=== PATIENT | male | born 1945 | race Caucasian/White ===

== ENCOUNTER 2023-12-02 10:36 | Outpatient (AMB) | payer MEDICARE, SELFPAY ==
--- NOTE | 2023-12-02 11:16 | A.OFFVIS_ITS ---
Vital Signs 12/02/23 11:17 Height 6 ft 3 in Weight 220 lb BMI 27.5 Intake Visit Reasons: New PT - Left Knee Pain Hx of TKA Intake Note: Sarath is a 78 year old male who presents today as a new patient with complaints of left knee pain. History of Left TKA03/09/15 at [facility]. Patient reports that he has a hard time walking, he complains of pain in the back, knees and feet Left> Right. He has previous surgery on bilateral feet to raise his arches and history of left TKA. He reports that the knee after TKA was dong well until he had his foot surgery. Allergies No Known Allergies Allergy (Verified 12/02/23 11:19) HPI HPI New PT - Left Knee Pain Hx of TKA: Details: Sarath is a 78 year old male who presents today as a new patient with complaints of left knee pain. History of Left TKA03/09/15 at [facility]. Patient reports that he has a hard time walking, he complains of pain in the back, knees and feet Left> Right. He has previous surgery on bilateral feet to raise his arches and history of left TKA. He reports that the knee after TKA was dong well until he had his foot surgery. He is here today really for non specific reason. 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 He had a left knee replacement and has low back pain. Apparently he was in a wheelchair per postoperatively for his feet and once he got out of the wheelchair he has had a hard time recovering his ability to ambulate comfortably. [facility] Surgical History (Updated 12/02/23 @ 13:58 by Godfrey Leyva MD) History of foot surgery Hx of shoulder surgery History of left knee replacement Physical Exam Vital Signs: BMI result Body Mass Index 27.5 Extrem Other: Bilateral arthrodesis well-healed incisions with stable flat foot deformity. Left knee incision is clean dry and intact with 0-125 degrees of motion and stable to varus and valgus stress. He walks without antalgia but does have a shuffling gait. Results Reviewed Results Reviewed: I reviewed his left knee radiographs. He has a left total knee arthroplasty in expected post operative position with no hardware complications or evidence of loosening Assessment & Plan Assessment & Plan (1) History of left knee replacement: Code(s): Z96.652 - Presence of left artificial knee joint Category: Surgical Plan: Imaging and exam are unremarkable. Stable left knee arthroplasty. (2) History of foot surgery: Code(s): Z98.890 - Other specified postprocedural states Category: Surgical Plan: I think his feet are flat but knee is minimal pain and there is no additional treatment that I recommend. (3) Physical deconditioning: Code(s): R53.81 - Other malaise Category: Medical Plan: I think Sarath's primary problem this physical deconditioning and this may relate to his recent foot surgery but indirectly. I reviewed his musculoskeletal concerns with him. My feeling is that he would benefit from resistance exercise as well as regular non impact exercise such as swimming or biking. I discussed this with him. He can return to see me in a time but no orthopedic intervention is warranted at this time. Coding Level of Care Code New Pt Level 4 (11630) Diagnoses History of left knee replacement Z96.652 History of foot surgery Z98.890 Physical deconditioning R53.81
[2023-12-02 11:17] VITALS: BMI 27.5
== END 2023-12-02 12:18 | disposition home or self-care (01) ==
PROVIDERS: Visit Provider Orthopaedic Surgery
DX: M25.562 Pain in left knee (principal); Z96.652 Presence of left artificial knee joint; R53.81 Other malaise
CPT/HCPCS: 99204

== ENCOUNTER → 2023-12-02 10:36 | Outpatient (BNVA) | payer MEDICARE, SELFPAY | PROVIDERS: Visit Provider Orthopaedic Surgery | DX: M25.562 Pain in left knee (principal); M54.50 Low back pain, unspecified; R53.81 Other malaise; Z96.652 Presence of left artificial knee joint; Z98.890 Other specified postprocedural states | CPT/HCPCS: 99202 ==